=== PATIENT | male | born 1990 | race Caucasian/White ===

== ENCOUNTER 2017-05-04 14:05 | Outpatient (CLI) | payer OTHER | END 2017-05-04 14:06 | disposition critical access hospital (66) | LOC: EMS 14:05 | PROVIDERS: ATTEND Surgery | DX: F41.9 Anxiety disorder, unspecified (principal); R09.89 Other specified symptoms and signs involving the circulatory and respiratory systems; R20.2 Paresthesia of skin; R25.2 Cramp and spasm | CPT/HCPCS: A0425; A0429 ==

== ENCOUNTER 2017-05-04 14:29 | Emergency (ER) | payer OTHER ==
[2017-05-04] MEDS ORDERED: diazePAM INJ 5 MG/ML SYRINGE IM STA (14:57)
--- NOTE | 2017-05-04 15:00 | ED Physician Documentation ---
History of Present Illness - Stated complaint Stated Complaint: ANXIETY - Chief complaint Chief Complaint: General - History obtained from History obtained from: Patient - Additonal information Additional information: 27-year-old gentleman, active duty in the [employer] was put on gabapentin a couple of weeks ago for insomnia. He had been on trazodone and Ambien prior to that without success. Since starting the gabapentin he has been feeling outside of himself which culminated in a panic attack today with hyperventilation and facial numbness. There is no associated chest pain. He just feels like he is "freaking out." Review of Systems Constitutional: denies: Fever, Chills Cardiac: denies: Chest pain / pressure, Palpitations, Pedal edema, Calf pain Respiratory: reports: Cough GI: denies: Abdominal Pain, Nausea, Vomiting PD PAST MEDICAL HISTORY - Present Medications Home Medications: Ambulatory Orders Medication Instructions Recorded Confirmed Gabapentin 05/04/17 Lorazepam [Ativan] 1 mg PO TID PRN #4 tablet 05/04/17 - Allergies Allergies/Adverse Reactions: Allergies Allergy/AdvReac Type Severity Reaction Status Date / Time No Known Drug Allergies Allergy Verified 05/04/17 14:35 PD ED PE NORMAL - Vitals Vital signs reviewed: Yes - General General: Alert and oriented X 3, Other (Panicky and hyperventilating) - HEENT HEENT: PERRL, EOMI - Neck Neck: Supple, no meningeal sign, No bony TTP - Cardiac Cardiac: RRR, No murmur - Respiratory Respiratory: Clear bilaterally - Abdomen Abdomen: Non tender - Neuro Neuro: Alert and oriented X 3, 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 He was feeling much better after the administration of 5 mg of Valium IM. Departure - Departure Disposition: 01 Home, Self Care Clinical Impression: Panic attack Condition: Good Record reviewed to determine appropriate education?: Yes Instructions: ED Panic Attack Prescriptions: Lorazepam [Ativan] 1 mg PO TID PRN #4 tablet PRN Reason: Anxiety Comments: Follow-up with your physician tomorrow. Do not drink or drive today. Your blood pressure was elevated today on check into the emergency department. This does not mean that you have hypertension, it is a common phenomenon to come to the emergency department and have elevated blood pressure. I recommend that she see her primary care physician within the week to have it rechecked when you are feeling better.
[2017-05-04] MEDS ORDERED: diazePAM INJ 5 MG/ML SYRINGE ONE (15:05)
[2017-05-04 16:28] VITALS: BP 137/70
== END 2017-05-04 16:00 | disposition home or self-care (01) ==
LOC: ED 14:29
DX: F41.0 Panic disorder [episodic paroxysmal anxiety] (principal); R03.0 Elevated blood-pressure reading, without diagnosis of hypertension
CPT/HCPCS: 96372; 99283